=== PATIENT | female | born 1955 | race Two or more races ===

== ENCOUNTER 2022-01-03 10:15 | Inpatient (IN) | payer OTHER ==
[~2022-01-03] VITALS: Ht 157.5 cm; Wt 115.7 kg
[2022-01-03] MEDS ORDERED: ALLOPURINOL100 MG PO (13:02)
[2022-01-03] MEDS ORDERED: HYDROCHLOROTH12.5 MG PO (13:02)
[2022-01-03] MEDS ORDERED: CYMBALTA60 MG PO (13:03)
[2022-01-03] MEDS ORDERED: PENTOXIFYLLINE400 MG PO (13:03)
[2022-01-03] MEDS ORDERED: GLIPIZIDE XL10 MG PO (13:03)
[2022-01-03] MEDS ORDERED: METFORMIN HCL850 M1 PO (13:04)
[2022-01-03] MEDS ORDERED: TOPROL XL100 M1 PO (13:04)
[2022-01-03] MEDS ORDERED: ZESTRIL40 M1 PO (13:04)
[2022-01-03] MEDS ORDERED: LIPITOR40 MG PO (13:05)
[2022-01-03] MEDS ORDERED: LANTUS SOL100 UNIT/1 (13:05)
[2022-01-08] MEDS ORDERED: FUROSEMIDE40 MG (08:18)
== END 2022-01-09 19:42 | DRG 470 ==
LOC: SURH 01-07 08:52 → O/R 01-07 08:52 → SURH 01-07 10:15
PROVIDERS: ADMIT Orthopaedic Surgery; ATTEND Orthopaedic Surgery
PROC: 0SRD0J9 Replacement of Left Knee Joint with Synthetic Substitute, Cemented, Open Approach (ICD-10-PCS; principal; 2022-01-07 14:00)
DX: M17.12 Unilateral primary osteoarthritis, left knee (principal); D62 Acute posthemorrhagic anemia; Z68.42 Body mass index [BMI] 45.0-49.9, adult; M85.662 Other cyst of bone, left lower leg; E11.9 Type 2 diabetes mellitus without complications; I10 Essential (primary) hypertension; E66.8 Other obesity; Z79.84 Long term (current) use of oral hypoglycemic drugs

== ENCOUNTER 2024-09-15 08:55 | Day surgery (SDC) | payer OTHER ==
[2024-09-08 08:28] VITALS: BP 159/69
[2024-09-08 08:42] LABS: URINE APPEARANCE Clear; URINE BILIRRUBIN Negative (NEGATIVE); URINE BLOOD Negative; URINE COLOR Yellow; URINE KETONE Negative (NEGATIVE); URINE LEUKOCYTE Negative; URINE NITRATE Negative; URINE PROTEIN Negative (NEGATIVE); URINE UROBILINOGEN 0.2 E.U./dl
[2024-09-08 08:46] LABS: URINE BACTERIA 35.2 uL (0.0-1933); URINE EPITHELIAL CELLS 6.6 uL (0.0-38.8); URINE WBC 10.4 uL (0.0-23.2)
[2024-09-08 08:47] LABS: HEMATOCRIT 39.1 % (36.0-45.00); HEMOGLOBIN 13.1 g/dL (12.0-15.00); MEAN CELL VOLUME 88.8 fL (80.00-100.00); MEAN CORPUSCULAR HEMOGLOBIN 29.8 pg (27.00-32.0); MEAN CORPUSCULAR HGB CONC 33.6 g/dl (32.0-36.0); PLATELET COUNT 275 K/uL (150-450); RED CELL DISTRIBUTION WIDTH 13.7 % (11.5-14.5)
[2024-09-08 09:01] LABS: URINE GLUCOSE >=1000 MG/DL (NEGATIVE)
[2024-09-08 09:22] LABS: INR 0.97; PARTIAL THROMBOPLASTIN TIME 29.2 SECONDS (22.0-34.0); PROTHROMBIN TIME 10.6 SECONDS (9.0-11.5)
[2024-09-08 09:47] LABS: ALBUMIN 3.6 gm/dL (3.4-5.0); BILIRUBIN TOTAL 0.45 mg/dL (0.3-1.2); CALCIUM 9.4 mg/dL (8.5-10.1); CREATININE SERUM 0.81 mg/dL (0.55-1.02); GFR 70.53; GLOBULINA 3.5 G/DL (2.4-3.5); POTASSIUM 5.04 mEq/L (3.5-5.1); TOTAL PROTEIN 7.1 gm/dL (6.4-8.2)
[2024-09-08 09:56] LABS: TSH 1.62 uIU/mL (0.358-3.74)
[~2024-09-15] VITALS: Ht 61 cm; Wt 5.0 kg
[~2024-09-15 08:55] MED LIST: ALLOPURINOL100 MG PO; CYMBALTA60 MG PO; FUROSEMIDE40 MG; GLIPIZIDE XL10 MG PO; HYDROCHLOROTH12.5 MG PO; LANTUS SOL100 UNIT/1; LIPITOR40 MG PO; METFORMIN HCL850 M1 PO; PENTOXIFYLLINE400 MG PO; TOPROL XL100 M1 PO; ZESTRIL40 M1 PO
[2024-09-15] MEDS ORDERED: TRAMADOL HCL50 MG PO (11:52)
[2024-09-15] MEDS ORDERED: MORGIDOX100 MG PO (11:52)
[2024-09-15] MEDS ORDERED: PROMETHAZINE HCL 50 MG/ML AMPUL IM ONE (12:00)
[2024-09-15] MEDS ORDERED: MORPHINE SULFATE 4 MG/ML VIAL IV PRN (12:00)
[2024-09-15] MEDS ORDERED: CEFOXITIN SODIUM 2,000 MG VIAL IV ONE (12:15)
[2024-09-15] MEDS ORDERED: POVIDONE-IODINE 118 ML BOTT TOP ONE (12:15)
[2024-09-15] MEDS ORDERED: MORPHINE SULFATE 4 MG/ML VIAL IV ONE (13:20)
== END 2024-09-15 16:35 | disposition home or self-care (01) ==
LOC: CIR.AMB 08:55
PROVIDERS: ATTEND Obstetrics & Gynecology
DX: D25.0 Submucous leiomyoma of uterus (principal); N84.0 Polyp of corpus uteri; N95.0 Postmenopausal bleeding